=== PATIENT | female | born 1945 | race Caucasian/White ===

== ENCOUNTER 2020-08-29 07:06 | Inpatient (IN) | payer OTHER, MEDICARE ==
[2020-08-24 18:05] VITALS: BMI 18.3
[2020-08-29] MEDS ORDERED: BUPIVACAINE LIPOSOME/PF (EXPAREL) 266 MG/20 ML VIAL ONE (07:52)
[2020-08-29] MEDS ORDERED: BUPIVACAINE HCL/PF 0.25% (2.5MG/ML) 10 ML VIAL ONE (07:53)
[2020-08-29] MEDS ORDERED: BUPIVACAINE HCL/PF 2.5 MG/ML - 30 ML VIAL IJ ONE (07:53)
[2020-08-29] MEDS ORDERED: LIDOCAINE HCL/PF 2% SDV 5ML VIAL ONE (08:17)
[2020-08-29] MEDS ORDERED: LIDOCAINE HCL 2% JELLY (5 ML/TUBE) ONE (08:17)
[2020-08-29] MEDS ORDERED: KETOROLAC TROMETHAMINE 30 MG/1 ML VIAL ONE (08:17)
[2020-08-29] MEDS ORDERED: ceFAZolin SODIUM 1 GM VIAL ONE ×3 (08:17→12:35)
[2020-08-29] MEDS ORDERED: DEXAMETHASONE SOD PHOSPHATE 4 MG/1 ML VIAL ONE (08:17)
[2020-08-29] MEDS ORDERED: ONDANSETRON 4 MG/2 ML VIAL ONE ×2 (08:17→14:08)
[2020-08-29] MEDS ORDERED: fentaNYL CITRATE 250 MCG/5 ML VIAL ONE (08:18)
[2020-08-29] MEDS ORDERED: MIDAZOLAM HCL 2 MG/2 ML SINGLE DOSE VIAL ONE (08:18)
[2020-08-29] MEDS ORDERED: PROPOFOL 20 ML ONE ×3 (08:18)
[2020-08-29] MEDS ORDERED: SUCCINYLCHOLINE CHLORIDE 200 MG/10 ML SYRINGE ONE (08:18)
[2020-08-29] MEDS ORDERED: ROCURONIUM BROMIDE 50 MG/5 ML SYRINGE ONE (08:18)
[2020-08-29] MEDS ORDERED: GENTAMICIN SO4 80 MG/2 ML VIAL ONE (08:28)
[2020-08-29] MEDS ORDERED: EPHEDRINE SULFATE/0.9% NACL/PF 50 MG/10 ML SYRINGE NR ONE (09:07)
[2020-08-29] MEDS ORDERED: GLYCOPYRROLATE 0.2 MG/1 ML VIAL ONE (12:34)
[2020-08-29] MEDS ORDERED: NEOSTIGMINE METHYLSULFATE 0.5 MG/ML - 10 ML MDV ONE (12:35)
[2020-08-29] MEDS ORDERED: MORPHINE SULFATE 2 MG/ML VIAL IVPUSH PRN (13:10)
[2020-08-29] MEDS ORDERED: ONDANSETRON 4 MG/2 ML VIAL IVPB PRN (13:10)
[2020-08-29] MEDS ORDERED: oxyCODONE HCL 5 MG TABLET PO PRN ×9 (13:10→13:54)
[2020-08-29] MEDS ORDERED: PROMETHAZINE HCL 25 MG/1 ML VIAL IVPUSH PRN (13:15)
[2020-08-29] MEDS ORDERED: ONDANSETRON 4 MG/2 ML VIAL IVPUSH PRN (13:15)
[2020-08-29] MEDS: busPIRone HCL 5 MG TABLET PO SCH ×2 (14:50→21:33)
[2020-08-29] MEDS: clonazePAM 0.5 MG TABLET PO PRN (16:50)
[2020-08-29] MEDS: CEFAZOLIN 1 GM/D5W 1 GM/50 ML BAG IVPB SCH (17:40)
[2020-08-29] MEDS ORDERED: clonazePAM 0.5 MG TABLET PO PRN (22:00)
[2020-08-29] MEDS ORDERED: clonazePAM 0.5 MG TABLET PO SCH ×3 (22:00)
[2020-08-29] MEDS: ATORVASTATIN CA 10 MG TABLET (FP) PO SCH (22:24)
[2020-08-30] MEDS: CEFAZOLIN 1 GM/D5W 1 GM/50 ML BAG IVPB SCH ×3 (01:26→18:19)
[2020-08-30] MEDS: busPIRone HCL 5 MG TABLET PO SCH ×2 (06:11→13:27)
[2020-08-30] MEDS ORDERED: LEVOTHYROXINE NA 75 MCG TABLET (FP) PO SCH (07:00)
[2020-08-30] MEDS: LACTATED RINGERS SOLUTION 1,000 ML IV SCH ×2 (07:37→13:28)
[2020-08-30] MEDS: HEPARIN NA (PORCINE) 5,000 UNITS/ML 1ML VIAL SQ SCH (09:23)
[2020-08-30] MEDS ORDERED: CHOLECALCIFEROL (VIT D3) 1,000 UNIT (25 MCG) TABLET PO SCH (10:00)
[2020-08-30] MEDS ORDERED: ESCITALOPRAM OXALATE 20 MG TABLET PO SCH (10:00)
[2020-08-30] MEDS ORDERED: METHYLCELLULOSE 500 MG PO SCH ×4 (10:00)
[2020-08-30] MEDS ORDERED: DOCUSATE SODIUM 100 MG CAPSULE (FP) PO SCH (10:00)
[2020-08-30] MEDS: clonazePAM 0.5 MG TABLET PO PRN (15:35)
[2020-08-30] MEDS ORDERED: NITROGLYCERIN 2% OINTMENT - 1GM PACKET TD ONE ×2 (18:15→19:11)
[2020-08-30] MEDS ORDERED: PROPOFOL 20 ML ONE (21:35)
[2020-08-30] MEDS ORDERED: fentaNYL CITRATE 250 MCG/5 ML VIAL ONE (21:35)
[2020-08-30] MEDS ORDERED: ROCURONIUM BROMIDE 50 MG/5 ML SYRINGE ONE (21:36)
[2020-08-30] MEDS ORDERED: ceFAZolin SODIUM 1 GM VIAL IVPB ONE (21:45)
[2020-08-30] MEDS ORDERED: NEOSTIGMINE METHYLSULFATE 0.5 MG/ML - 10 ML MDV ONE (22:29)
[2020-08-30] MEDS ORDERED: ONDANSETRON 4 MG/2 ML VIAL IVPUSH PRN (23:06)
[2020-08-30] MEDS ORDERED: ONDANSETRON 4 MG/2 ML VIAL IVPB PRN (23:09)
[2020-08-30] MEDS ORDERED: MORPHINE SULFATE 2 MG/ML VIAL IVPUSH PRN (23:09)
[2020-08-30] MEDS ORDERED: clonazePAM 0.5 MG TABLET PO PRN (23:09)
[2020-08-30] MEDS ORDERED: LACTATED RINGERS SOLUTION 1,000 ML IV SCH (23:09)
[2020-08-30] MEDS ORDERED: ACETAMINOPHEN 325 MG TABLET (FP) PO PRN (23:30)
[2020-08-30] MEDS ORDERED: oxyCODONE HCL 5 MG TABLET PO PRN (23:30)
[2020-08-30 23:35] LABS: HEMATOCRIT 27.1 % (32.4-45.2); HEMOGLOBIN 8.8 GM/dL (10.7-15.3); MCH 30.7 pg (25.7-33.7); MCHC 32.5 g/dl (32.0-36.0); MEAN CELL VOLUME 94.4 fl (80-96); MEAN PLT VOLUME 8.6 fl (7.5-11.1); PLATELET COUNT 196 K/MM3 (134-434); RBC 2.87 M/mm3 (3.60-5.2); RDW 14.7 % (11.6-15.6); WHITE BLOOD COUNT 10.1 K/mm3 (4.0-10.0)
[2020-08-31 00:05] LABS: POTASSIUM 4.3 mmol/L (3.5-5.1)
[2020-08-31 00:07] LABS: CALCIUM 7.9 mg/dL (8.5-10.1)
[2020-08-31 00:08] LABS: BLOOD UREA NITROGEN 17.4 mg/dL (7-18)
[2020-08-31 00:11] LABS: CREATININE 0.9 mg/dL (0.55-1.3)
[2020-08-31] MEDS: LACTATED RINGERS SOLUTION 1,000 ML IV SCH ×2 (01:27→06:15)
[2020-08-31] MEDS: CEFAZOLIN 1 GM/D5W 1 GM/50 ML BAG IVPB SCH ×2 (01:53→20:34)
[2020-08-31] MEDS ORDERED: busPIRone HCL 10 MG TABLET (FP) PO SCH (06:00)
[2020-08-31] MEDS: LEVOTHYROXINE NA 75 MCG TABLET (FP) PO SCH (06:28)
[2020-08-31] MEDS: ESCITALOPRAM OXALATE 20 MG TABLET PO SCH (09:59)
[2020-08-31] MEDS: DOCUSATE SODIUM 100 MG CAPSULE (FP) PO SCH (09:59)
[2020-08-31] MEDS: CHOLECALCIFEROL (VIT D3) 1,000 UNIT (25 MCG) TABLET PO SCH (09:59)
[2020-08-31] MEDS ORDERED: METHYLCELLULOSE PO SCH (10:00)
[2020-08-31] MEDS ORDERED: HEPARIN NA (PORCINE) 5,000 UNITS/ML 1ML VIAL SQ SCH (10:00)
[2020-08-31] MEDS ORDERED: DEXTROSE 5%-WATER - 50 ML IVPB ONE ×2 (10:26→17:33)
[2020-08-31] MEDS ORDERED: ceFAZolin SODIUM 1 GM VIAL ONE ×2 (10:26→17:33)
[2020-08-31] MEDS: CEFAZOLIN 1 GM in DEXTROSE 5%-WATER - 1 GM/50 ML IVPB IVPB SCH ×2 (10:29→17:38)
[2020-08-31] MEDS: clonazePAM 0.5 MG TABLET PO SCH ×2 (10:29→17:39)
[2020-08-31] MEDS ORDERED: PT OWN MED DRAWER 7, Y5N ONE (10:41)
[2020-08-31 12:03] LABS: HEMATOCRIT 26.4 % (32.4-45.2); HEMOGLOBIN 8.5 GM/dL (10.7-15.3); MCH 30.7 pg (25.7-33.7); MCHC 32.3 g/dl (32.0-36.0); MEAN CELL VOLUME 94.9 fl (80-96); MEAN PLT VOLUME 8.3 fl (7.5-11.1); PLATELET COUNT 201 K/MM3 (134-434); RBC 2.78 M/mm3 (3.60-5.2); RDW 14.5 % (11.6-15.6); WHITE BLOOD COUNT 10.3 K/mm3 (4.0-10.0)
[2020-08-31] MEDS ORDERED: busPIRone HCL 10 MG TABLET (FP) ONE ×2 (15:11→21:07)
[2020-08-31] MEDS ORDERED: busPIRone HCL 5 MG TABLET ONE ×2 (15:11→21:07)
[2020-08-31] MEDS: BUSPIRONE HCL 10 MG, BUSPIRONE HCL 5 MG PO SCH ×2 (15:15→21:14)
[2020-08-31] MEDS ORDERED: ZOLPIDEM TARTRATE 5 MG TABLET PO PRN (19:34)
[2020-08-31] MEDS ORDERED: SODIUM PHOSPHATE/NA BIPHOS 133 ML ENEMA PR ONE (19:35)
[2020-08-31] MEDS: HEPARIN NA (PORCINE) 5,000 UNITS/ML 1ML VIAL SQ SCH (20:33)
[2020-08-31] MEDS: busPIRone HCL 5 MG TABLET PO SCH (20:33)
[2020-08-31] MEDS: ATORVASTATIN CA 10 MG TABLET (FP) PO SCH ×3 (20:34→22:23)
[2020-08-31] MEDS ORDERED: clonazePAM 0.5 MG TABLET PO PRN (22:00)
[2020-09-01] MEDS: LACTATED RINGERS SOLUTION 1,000 ML IV SCH (00:10)
[2020-09-01] MEDS ORDERED: DEXTROSE 5%-WATER - 50 ML IVPB ONE ×2 (02:36→08:19)
[2020-09-01] MEDS ORDERED: ceFAZolin SODIUM 1 GM VIAL ONE ×2 (02:36→08:18)
[2020-09-01] MEDS: CEFAZOLIN 1 GM in DEXTROSE 5%-WATER - 1 GM/50 ML IVPB IVPB SCH ×2 (02:39→09:32)
[2020-09-01] MEDS ORDERED: busPIRone HCL 10 MG TABLET (FP) ONE (05:15)
[2020-09-01] MEDS ORDERED: busPIRone HCL 5 MG TABLET ONE (05:15)
[2020-09-01] MEDS: LEVOTHYROXINE NA 75 MCG TABLET (FP) PO SCH (06:04)
[2020-09-01] MEDS: BUSPIRONE HCL 10 MG, BUSPIRONE HCL 5 MG PO SCH (06:04)
[2020-09-01 09:28] VITALS: BP 111/58; PULSE 98; TEMP 98.1
[2020-09-01] MEDS: clonazePAM 0.5 MG TABLET PO SCH (09:33)
[2020-09-01] MEDS: CHOLECALCIFEROL (VIT D3) 1,000 UNIT (25 MCG) TABLET PO SCH (09:33)
[2020-09-01] MEDS: ESCITALOPRAM OXALATE 20 MG TABLET PO SCH (09:33)
[2020-09-01] MEDS: DOCUSATE SODIUM 100 MG CAPSULE (FP) PO SCH (09:33)
== END 2020-09-01 13:11 | disposition home or self-care (01) | DRG 580 ==
LOC: UNDOADMIN 07:06 → FM/S 07:06 → EDSTATUS 08:00 → FM/S 13:39 → FASUSAT 13:40 → FM/S 13:41 → FASUSAT 13:46 → FM/S 13:47 → FASUSAT 13:47 → FM/S 14:14 → JICU 08-30 21:24 → J4W 08-31 05:50
PROVIDERS: ADMIT Plastic Surgery; ATTEND Plastic Surgery
PROC: 0KBG0ZZ Excision of Left Trunk Muscle, Open Approach (ICD-10-PCS; 2020-08-29)
PROC: 0KXG0Z5 Transfer Left Trunk Muscle, Latissimus Dorsi Myocutaneous Flap, Open Approach (ICD-10-PCS; 2020-08-29)
PROC: 0HHU0NZ Insertion of Tissue Expander into Left Breast, Open Approach (ICD-10-PCS; 2020-08-29)
PROC: 0HPU0NZ Removal of Tissue Expander from Left Breast, Open Approach (ICD-10-PCS; 2020-08-29)
PROC: 0HRU077 Replacement of Left Breast using Deep Inferior Epigastric Artery Perforator Flap, Open Approach (ICD-10-PCS; 2020-08-29)
PROC: 0KXG0Z5 Transfer Left Trunk Muscle, Latissimus Dorsi Myocutaneous Flap, Open Approach (ICD-10-PCS; 2020-08-29)
PROC: 0HB5XZZ Excision of Chest Skin, External Approach (ICD-10-PCS; 2020-08-29)
PROC: 0HHU0NZ Insertion of Tissue Expander into Left Breast, Open Approach (ICD-10-PCS; principal; 2020-08-29 09:19)
PROC: 0HPU0JZ Removal of Synthetic Substitute from Left Breast, Open Approach (ICD-10-PCS; 2020-08-30)
PROC: 0HRU0JZ Replacement of Left Breast with Synthetic Substitute, Open Approach (ICD-10-PCS; 2020-08-30)
DX: C50.912 Malignant neoplasm of unspecified site of left female breast (principal); I96 Gangrene, not elsewhere classified; Z90.12 Acquired absence of left breast and nipple; E03.9 Hypothyroidism, unspecified; F41.9 Anxiety disorder, unspecified; T87.2 Complications of other reattached body part; T86.821 Skin graft (allograft) (autograft) failure
CPT/HCPCS: 36415; 80048; 85027; 86850; 86900; 86901; 88304-TC; 94760; C9803; G0277; J1644; U0003

== ENCOUNTER 2021-02-13 11:10 | Day surgery (SDC) | payer OTHER, MEDICARE ==
[2021-02-09 16:45] VITALS: BMI 18.0
[~2021-02-13 11:10] MED LIST: BACITRACIN 15 GM TUBE TOPICAL OINTMENT ONE; BUPIVACAINE HCL/PF 0.25% (2.5MG/ML) 10 ML VIAL IJ ONE; BUPIVACAINE HCL/PF 0.25% (2.5MG/ML) 10 ML VIAL ONE; DEXAMETHASONE SOD PHOSPHATE 4 MG/1 ML VIAL ONE; GENTAMICIN SO4 80 MG/2 ML VIAL ONE; MIDAZOLAM HCL 2 MG/2 ML SINGLE DOSE VIAL ONE; NEOSTIGMINE METHYLSULFATE 0.5 MG/1 ML - 10 ML MDV ONE; NITROGLYCERIN 2% OINTMENT - 1GM PACKET TD ONE; ONDANSETRON 4 MG/2 ML VIAL IVPB PRN; ONDANSETRON 4 MG/2 ML VIAL ONE; PHENYLEPHRINE HCL 10 MG/1 ML SINGLE DOSE VIAL ONE; SCOPOLAMINE HYDROBROMIDE 1 PATCH PATCH.TD72 ONE; ceFAZolin SODIUM 1 GM VIAL ONE; ePHEDrine SULFATE 50 MG/1 ML AMPULE ONE; fentaNYL CITRATE 250 MCG/5 ML VIAL ONE; morphine SULFATE 4 MG/ML VIAL IVPUSH PRN; oxyCODONE HCL 5 MG TABLET PO PRN
[2021-02-13] MEDS ORDERED: oxyCODONE HCL 5 MG TABLET PO PRN ×2 (11:11)
[2021-02-13] MEDS ORDERED: ONDANSETRON 4 MG/2 ML VIAL IVPUSH PRN (11:11)
[2021-02-13] MEDS ORDERED: PROMETHAZINE HCL 25 MG/1 ML VIAL IVPUSH PRN (11:11)
[2021-02-13] MEDS ORDERED: LACTATED RINGERS SOLUTION 1,000 ML IV SCH ×2 (11:15)
[2021-02-13] MEDS: busPIRone HCL 5 MG TABLET PO SCH ×2 (14:05→21:16)
[2021-02-13] MEDS: CEFAZOLIN 1 GM/D5W 1 GM/50 ML BAG IVPB SCH ×2 (14:05→21:15)
[2021-02-13] MEDS: clonazePAM 0.5 MG TABLET PO SCH (21:16)
[2021-02-13] MEDS ORDERED: clonazePAM 0.5 MG TABLET PO ONE (21:45)
[2021-02-13] MEDS ORDERED: ATORVASTATIN CA 10 MG TABLET (FP) PO SCH (22:00)
[2021-02-14] MEDS: CEFAZOLIN 1 GM/D5W 1 GM/50 ML BAG IVPB SCH ×2 (03:32→08:55)
[2021-02-14 06:17] VITALS: BP 138/64; TEMP 97.9
[2021-02-14] MEDS: busPIRone HCL 5 MG TABLET PO SCH (06:21)
[2021-02-14] MEDS ORDERED: LEVOTHYROXINE NA 88 MCG TABLET (FP) PO SCH (07:00)
[2021-02-14 08:37] VITALS: PULSE 65
[2021-02-14] MEDS: clonazePAM 0.5 MG TABLET PO SCH (09:00)
[2021-02-14] MEDS ORDERED: ESCITALOPRAM OXALATE 20 MG TABLET PO SCH (10:00)
[2021-02-14] MEDS ORDERED: METHYLCELLULOSE 500 MG PO SCH (10:00)
[2021-02-14] MEDS ORDERED: DOCUSATE SODIUM 100 MG CAPSULE (FP) PO SCH (10:00)
[2021-02-14] MEDS ORDERED: CHOLECALCIFEROL (VIT D3) 1,000 UNIT (25 MCG) TABLET PO SCH (10:00)
== END 2021-02-14 10:00 | disposition home or self-care (01) ==
LOC: FM/S 11:10 → FASUSAT 11:10
PROVIDERS: ATTEND Plastic Surgery
PROC: 0HHU0NZ Insertion of Tissue Expander into Left Breast, Open Approach (ICD-10-PCS; principal; 2021-02-13 09:01)
DX: Z90.12 Acquired absence of left breast and nipple (principal); C50.919 Malignant neoplasm of unspecified site of unspecified female breast
CPT/HCPCS: 15777; 19357; L8600; Q4116; 94760